=== PATIENT | male | born 1940 | race Caucasian/White ===

== ENCOUNTER 2018-10-17 03:58 | Emergency (ER) | payer MEDICARE, SELFPAY ==
[2018-10-17] VITALS (7 sets, daily range): BP systolic 123–177; BP diastolic 61–71; PULSE 88–106; RESP 16–27; TEMP 35.9; O2SAT 88–96; BMI 23.3
[2018-10-17] MEDS: Ipratropium/Albuterol Sulfate 3 ML AMPUL.NEB INHALATION (04:02)
--- NOTE | 2018-10-17 04:04 | ED.RN ---
NO OLD EKGS IN MUSE
--- NOTE | 2018-10-17 04:12 | RAD_ITS ---
STUDY: X-RAY CHEST REASON FOR EXAM: Male, 78 years old. Shortness of breath. TECHNIQUE: PA and lateral views of the chest. COMPARISON: None. FINDINGS: The lungs are hyperexpanded. There is collapse of the right long with graded pneumothorax of approximately 80% lung volume. There is probable bullae versus pneumothorax at the left lung apex. The left lung is otherwise clear. Normal size heart. Normal mediastinum and mary. Normal visualized pulmonary arteries. Normal visualized aortic arch and descending thoracic aorta. The thoracic spine is obscured by the mediastinum. There is degenerative osteoarthritis of the bilateral shoulders. There is no demonstrated abnormality of the visualized soft tissue structures of the upper abdomen. RAD/Chest PA and Lateral IMPRESSION: 1. Marked right pneumothorax. 2. Bullae versus left apical pneumothorax. N.B. : The above information has been verbally conveyed by Jim Fuller DO to Jluis Vincent MD, on 10/17/2018 04:39:18 (ET). Electronically Signed: Jim Fuller DO at 4:40 EDT Tel [phone], Service support ,
--- NOTE | 2018-10-17 04:12 | EKG12_ITS ---
Test Reason : RESP. DISTRESS Blood Pressure : / mmHG Vent. Rate : 115 BPM Atrial Rate : 115 BPM P-R Int : 118 ms QRS Dur : 124 ms QT Int : 356 ms P-R-T Axes : 097 032 105 degrees QTc Int : 492 ms Atrial fibrillation Right bundle branch block Voltage criteria for left ventricular hypertrophy Possible Inferior infarct , age undetermined T wave abnormality, consider lateral ischemia Abnormal ECG Confirmed by CLAU AG, MERRICK ([id number]), commercial production editor CATIA MERCADO ([id number]) on 10/19/2018 1:08:47 PM Referred By: Rubin Crystal Confirmed By:MERRICK OLGUIN MD
--- NOTE | 2018-10-17 04:13 | ED.VIS.DYS ---
History of Present Illness Chief Complaint: Shortness of Breath Informant: Patient, EMS Onset: Weeks - 1 Timing: Continuous Quality: - - sob Current Severity: Moderate Maximum Severity: Moderate Worsened by: Nothing Relieved by: Not Relieved By: Albuterol, Oxygen Associated Symptoms: Bloody Sputum - since biopsy -- small amts of old blood. Negative for: Cough - no significant cough except for when he has small amts of blood that need to come up, Fever Chest Pain: - - bloated-feeling Narrative: Had a PET scan showing a mass in his right lung so we had a biopsy at [facility] in [place] 1 week ago yesterday, states the biopsy accidentally because of pneumothorax, and he was admitted to the ICU. He has been short of breath ever since and it has been progressively getting worse ever since he was discharged around 5 days ago. Tonight it is worse still. No pleuritic symptoms or discomfort. States his abdomen and chest diffusely/throughout feel bloated. He does not think he had a chest tube placed when he was at the hospital. He is not sure what they did. - Past Medical History (1) COPD (chronic obstructive pulmonary disease) Status: Chronic (2) HTN (hypertension) Status: Chronic (3) Hyperlipidemia Status: Chronic Past Medical History - Allergies and Home Meds Allergies/Adverse Reactions: Allergies No Known Allergies Allergy (Verified 10/17/18 04:03) Lives: Alone Smoking Status: Former smoker Drugs: None Review of Systems General: Denies: Chills, Fever, Sweats Eyes: Denies: Visual changes - bilaterally, Diplopia ENT: Denies: Rhinorrhea, Sore throat Cardiovascular: Reports: Chest pain. Denies: Palpitations Respiratory: Reports: Dyspnea. Denies: Cough, Dyspnea on exertion Gastrointestinal: Reports: Abdominal pain. Denies: Nausea, Vomiting, Diarrhea, Melena, Hematochezia Genitourinary: Denies: Dysuria, Hematuria, Frequency Musculoskeletal: Denies: Back pain, Swelling, Extremity Pain Skin: Denies: Rash, Wounds Neurological: Denies: Headache, Weakness, Numbness Physical Exam Vital Signs/Narrative: Vital Signs Temp Pulse Resp BP Pulse Ox 10/17/18 04:00 96.7 F L 106 H 26 H 177/63 H 88 Inital Vital Signs reviewed: Yes General: Well nourished, Well developed, No Acute Distress Head: Normocephalic, Atraumatic Eyes: Perrl, EOMI ENT: Moist mucous membranes, No rhinorrhea Neck: Supple, Nontender, No JVD Cardiovascular: Regular rate, Regular rhythm, No murmurs, Tachycardia - mild Respiratory: No distress, Chest nontender, Diminished - throughout right side, - - trachea midline. tachypneic.. Negative for: Rales, Rhonchi, Wheezing Abdomen: Soft, Nontender, Nondistended, Normal bowel sounds Back: Nontender, Normal Inspection Extremities: Nontender, No edema. Negative for: Calf Tenderness Skin: Normal color, No rash, No Trauma Neurological: Alert, Oriented x3, Cranial nerves II-XII grossly intact, Normal Strength, Normal Sensation Psychological: Normal affect, Normal Mood Diagnostic/Tx/Re-eval Impressions Chest X-Ray 10/17/18 05:17 IMPRESSION: 1. Right sided chest tube with near complete reexpansion of the right lung when compared to the earlier study. 2. Improved aeration of the left perihilar region when compared to prior study Electronically Signed: Jim Fuller DO at 5:39 EDT Tel [phone], Service support , 10/17/18 04:12 Chest PA and Lateral [RAD] Stat 10/17/18 05:17 Chest 1 View (Portable) [RAD] Stat Laboratory Results 10/17/18 10/17/18 04:00 04:00 WBC 11.8 H RBC 5.44 Hgb 16.3 Hct 47.1 MCV 86.6 MCH 30.0 MCHC 34.6 RDW 13.2 RDW Differential 41.8 Plt Count 243 MPV 9.9 Immature Gran % (Auto) 0.900 Neut % (Auto) 60.5 Lymph % (Auto) 22.2 [place] % (Auto) 12.5 H Eos % (Auto) 3.7 Baso % (Auto) 0.2 Absolute Neuts (auto) 7.1 Absolute Lymphs (auto) 2.61 Total Counted Not Reportable Sodium 136 Potassium 4.4 Chloride 97 L Carbon Dioxide 30.0 Anion Gap 9 BUN 31 H Creatinine 1.13 Estim Creat Clear Calc 57.42 Est GFR (MDRD) Af Amer 81 Est GFR (MDRD) Non-Af 67 BUN/Creatinine Ratio 27.4 H Glucose 156 H Calcium 9.5 Troponin I 0.033 - Rhythm Strip Rhythm Strip: Sinus Tach Rate: 115 Ectopy: PAC(s) - EKG Initial EKG Interpretation: No Acute Injury Pattern, Sinus Tachycardia, RBBB, Inverted T-Waves - sept-laterally, Non-Specific ST Changes Prior: No Prior - Medical Decision Making Patient had eaten some fruit 2 hours prior to arrival so he was advised that procedural sedation for thoracostomy was higher risk. He was amenable to anxiolysis with Versed which was given and helped. He tolerated the procedure well. I chose a standard thoracostomy since he had a very large pneumothorax, approximately 70-80% according to radiology. Therefore, it was unknown how large the air leak was, I explained this as well as the small pigtail tube to him and why we chose that one and he was amenable to the plan and signed consent. Discussed with Dr. Crystal afterwards, as the patient was breathing much better and feels much better after placement. He evaluated and found that the tube appears to be placed well with no leaks in the system, but there appears to be a persistent pulmonary air leak, and therefore recommended CT thorax to further evaluate; that is pending. Procedures Procedure(s): Right thoracostomy --right chest was prepped and draped in a sterile fashion with Betadine after local anesthesia over the approximately 6 rib in the anterior axillary line with 10 cc of 1% lidocaine plain. He was anesthetized down to the parietal pleura. I incised with a #10 blade over the sixth rib, dissecting down to the pleura and puncturing bluntly with a pair of Kellys, a large whoosh of air was heard, causing the patient cough. He remained stable. I was able to palpate the inside of the thoracic wall with my finger, the lung was palpable well away from the ribs, and nothing else was palpated. A 28 Martiniquais chest tube was inserted, there is fogging of the tube during insertion. The tube was sutured in at approximately 12 cm, after it was directed cranially. Vaseline gauze was wrapped around the site and drain sponges were created and placed, and it was taped in place. Chest x-ray verified placement and lung inflation. Patient tolerated procedure well and there were no complications. ED Disposition - Plan for ED Patient: Diagnosis: Pneumothorax of right lung after biopsy
[2018-10-17 04:21] LABS: Absolute Lymphocyte Count 2.61 X10^3/ul (0.83-4.51); Absolute Neutrophil Count 7.1 X10^3/uL (2.0-7.7); Basophil# 0.02 X10^3/uL; Basophil% 0.2 % (0-1); Eosinophil# 0.43 X10^3/uL; Eosinophils% 3.7 % (0-5); Hematocrit 47.1 % (40-54); Hemoglobin 16.3 g/dl (13.0-16.5); Lymphocyte # 2.61 X10^3/ul (4.0); Lymphocyte % 22.2 % (19-41); Mean Corp Hgb Conc 34.6 g/gl (32-36); Mean Corpuscular Volume 86.6 fL (80-94); Mean Platelet Vol. 9.9 fl (6.2-12.0); Monocyte# 1.47 X10^3/uL; Monocyte% 12.5 % (0-10); Neutrophil # 7.12 X10^3/uL (2.7-7.7); Neutrophil % 60.5 % (47-70); POSITIVE COUNT NO; POSITIVE DIFFERENTIAL NO; POSITIVE MORPHOLOGY NO; Platelet Count 243 K/mm3 (150-450); RBC Distribution Width CV 13.2 % (11.6-14.6); RBC Distribution Width SD 41.8 fl (35.1-43.9); Red Blood Count 5.44 M/mm3 (4.6-6.2); White Blood Count 11.8 K/mm3 (4.4-11.0)
[2018-10-17 04:43] LABS: Anion Gap 9 (5-15); BUN 31 mg/dL (7-18); BUN/Creat Ratio 27.4 RATIO (10-20); Calcium,Total 9.5 mg/dL (8.5-10.1); Chloride 97 mmol/L (98-107); Creatinine, Serum 1.13 mg/dL (0.70-1.30); EST Glomerular Filtration Rate 67 mL/min (>60); Est Glom Filt Rate - Afr Amer 81 mL/min (>60); Estimated Creatinine Clearance 57.42 ml/min; Glucose 156 mg/dL (74-106); Potassium 4.4 mmol/L (3.5-5.1); Sodium Level 136 mmol/L (136-145)
[2018-10-17] MEDS: Midazolam 2 MG/2 ML Syringe IV (04:50)
--- NOTE | 2018-10-17 05:04 | ED.RN ---
AT BEDSIDE INSERTING CHEST TUBE.
--- NOTE | 2018-10-17 05:17 | RAD_ITS ---
STUDY: X-RAY CHEST REASON FOR EXAM: Male, 78 years old. Pneumothorax. TECHNIQUE: Single AP portable view of the chest. COMPARISON: October 17, 2018 (0423 hours). FINDINGS: There is now a right-sided large bore chest tube with its tip near the hilum. There is near complete reexpansion of the right lung is minimal pneumothorax seen along the lower chest wall. This is less than 5% lung volume. There is improved aeration in the left lung with decreasing perihilar density. There is no demonstrated pleural abnormality. Normal size heart. Normal mediastinum and mary. Normal visualized pulmonary arteries. Normal visualized aortic arch and descending thoracic aorta. There is degenerative changes and mild scoliosis of the drastic spine. Normal visualized ribs, clavicles, and shoulders. There is no demonstrated abnormality of the visualized soft tissue structures of the upper abdomen. RAD/Chest 1 View (Portable) IMPRESSION: 1. Right sided chest tube with near complete reexpansion of the right lung when compared to the earlier study. 2. Improved aeration of the left perihilar region when compared to prior study Electronically Signed: Jim Fuller DO at 5:39 EDT Tel [phone], Service support ,
--- NOTE | 2018-10-17 06:48 | CT_ITS ---
STUDY: CT CHEST WITHOUT CONTRAST REASON FOR EXAM: Male, 78 years old. Increasing shortness of breath. Pneumothorax following lung biopsy. RADIATION DOSAGE (If Supplied By Facility): CTDIvol = ( 14.31 ) mGy, DLP = ( 557.98 ) mGycm TECHNIQUE: Transaxial imaging was performed without the administration of intravenous contrast material. Multiplanar coronal and sagittal images were reformatted. Individualized dose optimization techniques were used for this CT. COMPARISON: None. FINDINGS: Marked emphysematous changes of both lungs with multiple pulmonary bullae. There is a right sided chest tube entering between the sixth and seventh ribs and extending upward and posteriorly towards the apex. There is fluid in the right chest along the superior oblique fissure with associated atelectatic changes. There is a spiculated mass in the anterior right upper lobe. No pneumothorax. There is partial collapse of bronchiectasis of the left upper lobe. No evidence of left pleural effusion. Normal heart and pericardium. There are calcifications of the coronary arteries. Normal mediastinum. Normal hilar regions. Normal unenhanced pulmonary arteries. There is atherosclerotic calcification of the aortic arch with tortuosity and elongation of the aortic arch and descending thoracic aorta. There are degenerative changes involve the thoracic spine. There is air in the subcutaneous tissues along the left lateral chest wall near the insertion of the chest tube. There are no associated rib fractures. There is no demonstrated abnormality of the visualized upper abdomen. CT/Chest without Contrast IMPRESSION: 1. Right chest tube with reexpansion on the right lung. 2. Small right pleural effusion. 3. Partial collapse of the left upper lobe with marked emphysematous changes of both lungs. Spiculated mass anteriorly in the right upper lobe 4. Subcutaneous air in the soft tissues of the right chest wall. 5. Degenerative changes of the thoracic spine. Electronically Signed: Jim Fuller DO at 7:41 EDT Tel [phone], Service support ,
--- NOTE | 2018-10-17 06:49 | NURSING ---
DR WALKER IN ROOM
--- NOTE | 2018-10-17 08:01 | NURSING ---
CALLED [facility] FOR TRANSFER
--- NOTE | 2018-10-17 08:15 | NURSING ---
[facility] [phone] GONZALEZ
--- NOTE | 2018-10-17 08:27 | NURSING ---
[facility] FOR TRANSPORT. COMING FROM [place]
== END 2018-10-17 08:57 | disposition short-term general hospital (02) ==
LOC: ED 06:00 → MS3 07:05
PROVIDERS: Emergency Provider Emergency Medicine; Family Provider Family Medicine; PCP Family Medicine; Referring Provider Surgery
DX: J95.811 Postprocedural pneumothorax (principal); J90 Pleural effusion, not elsewhere classified; I10 Essential (primary) hypertension; J44.9 Chronic obstructive pulmonary disease, unspecified; E78.5 Hyperlipidemia, unspecified; Z79.899 Other long term (current) drug therapy; Z87.891 Personal history of nicotine dependence
CPT/HCPCS: 32551; 71045; 71046; 71250; 80048; 84484; 85025; 93005; 94640; 99285; J7030; A4216